=== PATIENT | female | born 1970 | race Caucasian/White ===

== ENCOUNTER → 2017-03-17 | Outpatient (CLI) | payer OTHER ==
[~2017-03-17] VITALS: Ht 170.2 cm; Wt 88.0 kg
[~2017-03-17] MED LIST: ABILIFY 5 MG TAB5 MG PO; ABILIFY10 MG PO; ALPRAZOLAM2 MG PO; AMBIEN 10 MG TA10 MG PO; ATIVAN1 MG PO; CALCIUM 500+D1 EAC2 PO; CARISOPRODOL 3350 M1; CIDAFLEX TABLE1 EACH PO; CO Q-1010 MG PO; DOXYCYCLINE 10100 MG PO; EFFEXOR XR150 MG PO; EFFEXOR75 MG PO; HYDROCODON-ACE1 EACH PO; HYDROCODONE-AP1 EAC1 PO; KLONOPIN0.5 MG PO; LIDODERM 5%1 PATCH TOP; LIDODERM TD; LISINOPRIL-HCT1 EAC2 PO; LOPRESSOR PO; MELATONIN1 MG PO; METFORMIN HCL500 MG PO; MOBIC7.5 MG PO; MULTIVITAMINS PO; NEURONTIN600 MG PO; PERCOCET 10-321 EACH; PERCOCET 10-321 EACH PO; SINGULAIR 10 MG10 M1 PO; TIZANIDINE HCL4 MG PO; TRIAMTERENE-HC1 EAC1 PO; VITAMIN B-150 M1 PO; VITAMIN D400 UNI1 PO; VITAMIN E400 UNIT PO; ZANAFLEX4 M1 PO; ZANAFLEX4 MG PO; ZARAH TABLET1 EACH PO; ZOCOR20 MG PO
--- NOTE | ~2017-03-17 | HPC ---
[facility] [place] [address] PAIN MANAGEMENT CONSULTATION Name: SORAYA FINE Room #: REG [facility] Mai#: [id number] Admission: 03/17/17 Attend Phys: Tae Newman DO Discharge: Date of : 66 Report #: [id number] THIS REPORT FOR: //name// CC: Hollis Newman SUBJECTIVE: The patient is an unfortunate 46-year-old female. She had prior been seen by myself back in May 2016. She was treated for symptomatic lumbar radiculopathy, SI joint dysfunction, and myofascial pain. She had been taking Percocet 10/325 up to 4 a day. I had renewed prescriptions for her, and then, she was somewhat lost to followup. She presents to the pain clinic today. She was seen for a prolonged visit, from 9:21 to 9:55, greater than 50% of this greater than 25-minute visit was spent counseling the patient. The patient states that she started seeing Dr. Puentes at [place]. Apparently, he gave her injections in October and November with some efficacy. 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 She states she has been off opiates for a month. She apparently had been receiving oxycodone [address] Puentes. It appears the last prescription was filled on 01/16/2017. She had had prescriptions filled prior. She states she had an MRI ordered, though it is unclear by whom. She states she is having increasing pain from her "bulging disks" (?). She states she has pain in her low back and bilateral legs, left worse than right. She rates her pain as 6-7 on a VAS. She states cold weather exacerbates her pain, though it is in the middle of summer in [place]. She states that she has been doing physical therapy, she has a handout from PT that she does about 30 minutes at a time, and she notes she is riding her bicycle 2-3 times a week as well. The patient continues to smoke. She is requesting narcotic medications. PHYSICAL EXAMINATION: VITAL SIGNS: She is a 46-year-old female, BMI is 30.4 kilograms per meter squared. Blood pressure /66, pulse 97, and respirations 16. MUSCULOSKELETAL: Pain is primarily left-sided. Physical exam, however, shows a tandem gait, well-healed surgical scars compatible with the amputation of the distal aspect of her bilateral great toes. Slight decreased right leg dorsiflexion strength. Nominally positive straight leg raise in the right. ALYSIA test is positive on the left. Lumbar flexion is good to 90 degrees. Diffuse low back pain, tenderness over the left SI joint. Left lower extremity strength is actually good, and straight leg raise is negative. Again, vital signs generally stable as noted in the EMR. [facility] [address] [place] [address] PAIN MANAGEMENT CONSULTATION Name: SORAYA FINE Room #: REG KIKI Oneill#: [id number] Admission: 03/17/17 Attend Phys: Tae Newman DO Discharge: Date of : 66 Report #: [id number] The patient continues to smoke and was counseled regarding same. ASSESSMENT: Left sacroiliac joint dysfunction by clinical exam, history of degenerative joint disease, myofascial pain, lumbar radiculopathy and complex medication management. The patient has been off opiates for a month, and I encouraged her that we should continue off narcotics. Short-acting opiates for a nonmalignant pain does not show typically increased functional status, and indeed, the patient states she is "medically disabled", on SSDI due to her "bulging disks." Again, I can find no radicular symptoms. She does have some axial back and sacroiliac-mediated pain on clinical exam. I suspect that some of her SSDI maybe from psychiatric component, she does suffer from chronic anxiety and depression. She does take 150 mg of Effexor, 1 mg of lorazepam as needed for anxiety. Dr. Butler has continued to write for gabapentin 600 mg 4 times a day and meloxicam 7.5 b.i.d. for pain concerns. These are appropriate. Again, short-acting opiates in my opinion would be an appropriate at this time. I did suggest to move forward with the left sacroiliac joint injection under fluoroscopy though the patient would prefer oral opiates, and she left the office. I will seek authorization for left sacroiliac joint injection under fluoroscopy. We will have the patient follow simply as needed. Discharged in good and stable condition after prolonged visit, spent reviewing significant interval history. I did not write for opiate analgesics for the patient. By: [id number] [id number] Tae Newman DO /nt
[2017-03-17 09:19] VITALS: BP 141/66
== END | disposition home or self-care (01) ==
LOC: PAIN 07:07 → RAD 08:30 → PAIN 08:33
DX: Z76.0 Encounter for issue of repeat prescription (principal); G89.29 Other chronic pain; M53.3 Sacrococcygeal disorders, not elsewhere classified; M51.36 Other intervertebral disc degeneration, lumbar region; M79.1 Myalgia; M54.16 Radiculopathy, lumbar region; F17.210 Nicotine dependence, cigarettes, uncomplicated; Z79.891 Long term (current) use of opiate analgesic; Z98.890 Other specified postprocedural states; Z88.0 Allergy status to penicillin; Z88.8 Allergy status to other drugs, medicaments and biological substances; Z79.899 Other long term (current) drug therapy